=== PATIENT | female | born 1995 ===

== ENCOUNTER 2022-09-15 15:56 | Outpatient (CLI) | payer OTHER | END 2022-09-15 17:20 | disposition home or self-care (01) | LOC: PRENATAL 15:56 | PROVIDERS: ATTEND Obstetrics & Gynecology Maternal & Fetal Medicine | DX: O35.9XX0 Maternal care for (suspected) fetal abnormality and damage, unspecified, not applicable or unspecified (principal); O34.10 Maternal care for benign tumor of corpus uteri, unspecified trimester; O43.90 Unspecified placental disorder, unspecified trimester; O34.219 Maternal care for unspecified type scar from previous cesarean delivery; Z3A.19 19 weeks gestation of pregnancy ==

== ENCOUNTER 2022-12-11 16:13 | Outpatient (CLI) | payer OTHER | END 2022-12-11 17:15 | disposition home or self-care (01) | LOC: PRENATAL 16:13 | PROVIDERS: ATTEND Obstetrics & Gynecology Maternal & Fetal Medicine | DX: O26.849 Uterine size-date discrepancy, unspecified trimester (principal); O34.219 Maternal care for unspecified type scar from previous cesarean delivery; O41.00X0 Oligohydramnios, unspecified trimester, not applicable or unspecified; O43.90 Unspecified placental disorder, unspecified trimester; O36.8199 Decreased fetal movements, unspecified trimester, other fetus; Z3A.32 32 weeks gestation of pregnancy ==

== ENCOUNTER 2023-01-01 13:00 | Outpatient (CLI) | payer OTHER | END 2023-01-01 13:44 | disposition home or self-care (01) | LOC: PRENATAL 13:00 | PROVIDERS: ATTEND Obstetrics & Gynecology Maternal & Fetal Medicine | DX: O26.849 Uterine size-date discrepancy, unspecified trimester (principal); O36.8199 Decreased fetal movements, unspecified trimester, other fetus; O41.00X0 Oligohydramnios, unspecified trimester, not applicable or unspecified; Z3A.35 35 weeks gestation of pregnancy ==